=== PATIENT | male | born 1990 | race Caucasian/White ===

== ENCOUNTER 2025-05-29 06:16 | Day surgery (SDC) | payer OTHER ==
[~2025-05-29] VITALS: Ht 175.3 cm; Wt 106.5 kg
[~2025-05-29 06:16] MED LIST: ALBU8.5H; AMPH1TAB2 PO; CELE0.09 PO; CYCL-707 PO; EPIN0.3I11; FEXO-63 PO; FLUTISP; GUAN2TAB PO; IBUP600T42 PO; LIDO1PAD; LINZ145C PO; OMEP40CA5 PO; PREG50CA3 PO; RIZA10TA58 PO; TEST200I14; TOPI-21 PO; VITA100093 PO
[2025-05-29] MEDS ORDERED: ROCURONIUM BROMIDE 50MG/5ML VIAL As Ordered ONE (07:07)
[2025-05-29] MEDS ORDERED: LIDOCAINE 2% 100 MG/5 ML SDV (FOR ANES.) As Ordered ONE (07:07)
[2025-05-29] MEDS ORDERED: MIDAZOLAM INJ 2 MG/2 ML VIAL As Ordered ONE (07:08)
[2025-05-29] MEDS: MIDAZOLAM INJ 2 MG/2 ML VIAL IV PRN (07:45)
[2025-05-29] MEDS: BUPivacaine LIPOSOME/PF 133 MG/10 ML VIAL PN ONE (07:51)
[2025-05-29] MEDS: LIDOCAINE 1% SDV 5 ML VIAL PN ONE (07:51)
[2025-05-29] MEDS: ceFAZolin SOD 2 GM IV ONCE IV ONE (08:04)
[2025-05-29] MEDS: TRANEXAMIC ACID 100 MG/ML 10ML VIAL IV ONE (08:20)
[2025-05-29] MEDS: TRANEXAMIC ACID 100 MG/ML 10ML VIAL As Ordered ONE (08:20)
[2025-05-29] MEDS ORDERED: dexAMETHasone 4 MG/ML 1 ML VIAL As Ordered ONE (08:55)
[2025-05-29] MEDS ORDERED: ONDANSETRON 4MG/2ML VIAL As Ordered ONE (08:55)
[2025-05-29] MEDS ORDERED: ACETAMINOPHEN 1000MG/100ML IV BAG As Ordered ONE (08:55)
[2025-05-29] MEDS ORDERED: KETOROLAC 30 MG/ML 1 ML VIAL As Ordered ONE (08:55)
[2025-05-29] MEDS ORDERED: SUGAMMADEX SODIUM 500 MG/5 ML VIAL As Ordered ONE (08:55)
[2025-05-29] MEDS: EPINEPHrine INJ 1 MG/ML 1ML AMP As Ordered ONE (09:28)
[2025-05-29] MEDS: LIDOCAINE 1% SDV 30 ML VIAL As Ordered ONE (09:30)
[2025-05-29] MEDS: VANCOMYCIN 1000MG/20ML VIAL As Ordered ONE (09:30)
[2025-05-29] MEDS: HYDROMORPHONE HCL 0.5 MG/0.5 ML SYRINGE IV PRN (10:36)
[2025-05-29] MEDS: ONDANSETRON 4MG/2ML VIAL IV PRN (10:49)
[2025-05-29 12:34] VITALS: BP 125/68; TEMP 98.6; O2SAT 99
== END 2025-05-29 13:08 | disposition home or self-care (01) ==
LOC: M SDC 06:16
PROVIDERS: ATTEND Orthopaedic Surgery
DX: S43.431A Superior glenoid labrum lesion of right shoulder, initial encounter (principal); M25.511 Pain in right shoulder
CPT/HCPCS: 29807; 29826; 64415; 93005; C1713; J0131; J0166; J0665; J0666; J0688; J1100; J1171; J1885; J2250; J2405; J3010